=== PATIENT | male | born 1940 | race Caucasian/White ===

== ENCOUNTER 2017-10-20 15:22 | Emergency (ER) | payer MEDICARE ==
[~2017-10-20] VITALS: Ht 177.8 cm; Wt 104.3 kg
== END 2017-10-20 17:03 | disposition home or self-care (01) ==
LOC: ER 15:22
DX: S00.83XA Contusion of other part of head, initial encounter (principal); W19.XXXA Unspecified fall, initial encounter
CPT/HCPCS: 99284-25